=== PATIENT | male | born 1970 | race Caucasian/White ===

== ENCOUNTER 2016-12-26 11:00 | Emergency (ER) | payer MEDICARE ==
[2016-12-26 12:16] LABS: Hematocrit 46.7 % (35.5-45.6); Hemoglobin 16.4 gm/dl (11.8-15.2); Mean Corpuscular HGB Conc 35 % (32-34); Mean Corpuscular Hemoglobin 30 pg (28-32); Mean Corpuscular Volume 84 fl (84-94); Platelet Count 284 K/mm3 (140-440); Red Blood Count 5.55 M/mm3 (3.65-5.03); Red Cell Distribution Width 13.9 % (13.2-15.2); White Blood Count 10.3 K/mm3 (4.5-11.0)
[2016-12-26 13:05] LABS: Anion Gap 21 mmol/L; BUN/Creatinine Ratio 16.66; Blood Urea Nitrogen 20 mg/dL (9-20); Carbon Dioxide 27 mmol/L (22-30); Chloride 98.2 mmol/L (98-107); Glucose 107 mg/dL (75-100); Potassium 3.8 mmol/L (3.6-5.0); Sodium 142 mmol/L (137-145)
[2016-12-26 15:37] LABS: Urine Drugs of Abuse Note Disclamer
[2016-12-26 16:03] LABS: Bilirubin,Urine NEG (Negative); Blood,Urine NEG (Negative); Ketones,Urine TR mg/dL (Negative); Leukocyte Esterase,Urine NEG (Negative); Mucus,Urine 1+ /HPF; Nitrite,Urine NEG (Negative)
[2016-12-26 20:27] VITALS: BP 126/86
--- NOTE | 2016-12-26 21:07 | Emergency Department Report ---
ED Medical Clearance HPI - General Chief complaint: Medical Clearance Stated complaint: MEDICAL CLEARENCE Time Seen by Provider: 12/26/16 20:57 Source: patient, RN notes reviewed Mode of arrival: Ambulatory Limitations: No Limitations - History of Present Illness Initial comments: This is a 46-year-old male. He is previously unknown to me. He presents to the ER for medical clearance after a relapse on alcohol and crack cocaine the previous evening. The patient is not homicidal or suicidal. He is not experiencing hallucinations. He does not have access to guns or firearms. He is currently at [facility] for [facility]. He denies headache, neck pain, chest pain, abdominal pain or shortness of breath. He has no medical complaints at this time. MD Complaint: medical clearance request Reason for Medical Clearance: intoxication Place: other ([facility]) Traumatic Symptoms: denies traumatic injury Associated Symptoms: denies: chest pain, shortness of breath, palpitations, diaphoresis, denies other symptoms, confusion, cough, fever/chills, headaches, anorexia, malaise, nausea/vomiting, rash, seizure, syncope, weakness Treatments Prior to Arrival: none Allergies/Adverse reactions: Allergies Allergy/AdvReac Type Severity Reaction Status Date / Time No Known Allergies Allergy Verified 12/26/16 20:16 ED Review of Systems ROS: Stated complaint: MEDICAL CLEARENCE Other details as noted in HPI Comment: All other systems reviewed and negative ED Past Medical Hx - Past Medical History Previous Medical History?: Yes Hx Hypertension: Yes Hx Psychiatric Treatment: Yes (depression, anxiety) Hx HIV: Yes (can't recall his antiviral meds) Additional medical history: hyperlipidemia - Surgical History Past Surgical History?: No - Social History Smoking Status: Never Smoker Substance Use Type: Alcohol, Cocaine ED Physical Exam - General Limitations: No Limitations General appearance: alert, in no apparent distress - Head Head exam: Present: atraumatic, normocephalic - Eye Eye exam: Present: normal appearance, EOMI, other (visual acuity intact to finger counting, color perception, reading at a close distance). Absent: nystagmus - ENT ENT exam: Present: normal exam, normal orophraynx, mucous membranes moist, normal external ear exam - Neck Neck exam: Present: normal inspection, full ROM. Absent: tenderness, meningismus - Respiratory Respiratory exam: Present: normal lung sounds bilaterally. Absent: respiratory distress, wheezes, rales, rhonchi, stridor, chest wall tenderness, accessory muscle use, decreased breath sounds, prolonged expiratory - Cardiovascular Cardiovascular Exam: Present: regular rate, normal rhythm, normal heart sounds. Absent: bradycardia, tachycardia, irregular rhythm, systolic murmur, diastolic murmur, rubs, gallop - GI/Abdominal GI/Abdominal exam: Present: soft, normal bowel sounds. Absent: distended, tenderness, guarding, rebound, rigid, pulsatile mass - Rectal Rectal exam: Present: deferred - Extremities Exam Extremities exam: Present: normal inspection, full ROM, normal capillary refill. Absent: tenderness, pedal edema, joint swelling, calf tenderness - Back Exam Back exam: Present: normal inspection, full ROM. Absent: tenderness, CVA tenderness (R), CVA tenderness (L), muscle spasm, paraspinal tenderness, vertebral tenderness - Neurological Exam Neurological exam: Present: alert, oriented X3, normal gait, other (Extraocular movements intact. Tongue midline. No facial droop. Facial sensation intact to light touch in the V1, V2, V3 distribution bilaterally. 5 and 5 strength in 4 extremities.. Sensation is intact to light touch in 4 extremities.). Absent : motor sensory deficit - Psychiatric Psychiatric exam: Present: normal affect, normal mood. Absent: homicidal ideation, suicidal ideation - Skin Skin exam: Present: warm, dry, intact, normal color. Absent: rash ED Course Vital Signs 12/26/16 12/26/16 11:44 20:26 Temperature 98.1 F Pulse Rate 78 74 Respiratory 18 16 Rate Blood Pressure 108/71 Blood Pressure 126/86 [Left] O2 Sat by Pulse 99 97 Oximetry - Reevaluation(s) Reevaluation #1: 12/26/16 21:06 Differential diagnosis: Medical clearance for detox, medical clearance for psychiatric placement, general medical evaluation Assessment and plan: 46-year-old male who is clinically sober, not homicidal, not suicidal, here for medical clearance after relapse. He has a GCS of 15, with an NIH score of 0, walks with a steady gait. He is not clinically intoxicated at this time. He does not require 1013 at this time. He is instructed to discontinue consumption of intoxicating substances. At this point in time, there is no immediate medical contraindication to return to outpatient/inpatient psychiatric care. ED Medical Decision Making - Lab Data Result diagrams: 12/26/16 11:58 12/26/16 11:58 Vital Signs 12/26/16 12/26/16 11:44 20:26 Temperature 98.1 F Pulse Rate 78 74 Respiratory 18 16 Rate Blood Pressure 108/71 Blood Pressure 126/86 [Left] O2 Sat by Pulse 99 97 Oximetry Lab Results 12/26/16 12/26/16 12/26/16 Range/Units 11:58 11:58 11:58 WBC 10.3 (4.5-11.0) K/mm3 RBC 5.55 H (3.65-5.03) M/mm3 Hgb 16.4 H (11.8-15.2) gm/dl Hct 46.7 H (35.5-45.6) % MCV 84 (84-94) fl MCH 30 (28-32) pg MCHC 35 H (32-34) % RDW 13.9 (13.2-15.2) % Plt Count 284 (140-440) K/mm3 Lymph % (Auto) 31.3 (13.4-35.0) % [place] % (Auto) 9.2 H (0.0-7.3) % Eos % (Auto) 2.0 (0.0-4.3) % Baso % (Auto) 1.0 (0.0-1.8) % Lymph # 3.2 (1.2-5.4) K/mm3 [place]irt # 0.9 H (0.0-0.8) K/mm3 Eos # 0.2 (0.0-0.4) K/mm3 Baso # 0.1 (0.0-0.1) K/mm3 Seg Neutrophils % 56.5 (40.0-70.0) % Seg Neutrophils # 5.8 (1.8-7.7) K/mm3 Sodium 142 (137-145) mmol/L Potassium 3.8 (3.6-5.0) mmol/L Chloride 98.2 (98-107) mmol/L Carbon Dioxide 27 (22-30) mmol/L Anion Gap 21 mmol/L BUN 20 (9-20) mg/dL Creatinine 1.2 (0.8-1.5) mg/dL Estimated GFR > 60 ml/min BUN/Creatinine Ratio 16.66 % Glucose 107 H (75-100) mg/dL Calcium 10.0 (8.4-10.2) mg/dL Urine Color (Yellow) Urine Turbidity (Clear) Urine pH (5.0-7.0) Ur Specific [place] (1.003-1.030) Urine Protein (Negative) mg/dL Urine Glucose (UA) (Negative) mg/dL Urine Ketones (Negative) mg/dL Urine Blood (Negative) Urine Nitrite (Negative) Urine Bilirubin (Negative) Urine Urobilinogen (<2.0) mg/dL Ur Leukocyte Esterase (Negative) Urine WBC (Auto) (0.0-6.0) /HPF Urine RBC (Auto) (0.0-6.0) /HPF U Epithel Cells (Auto) (0-13.0) /HPF Urine Mucus /HPF Urine Opiates Screen Urine Methadone Screen Ur Barbiturates Screen Ur Phencyclidine Scrn Ur Amphetamines Screen U Benzodiazepines Scrn Urine Cocaine Screen U Marijuana (THC) Screen Drugs of Abuse Note Plasma/Serum Alcohol < 0.01 (0-0.07) gm% 12/26/16 12/26/16 Range/Units 15:15 15:15 WBC (4.5-11.0) K/mm3 RBC (3.65-5.03) M/mm3 Hgb (11.8-15.2) gm/dl Hct (35.5-45.6) % MCV (84-94) fl MCH (28-32) pg MCHC (32-34) % RDW (13.2-15.2) % Plt Count (140-440) K/mm3 Lymph % (Auto) (13.4-35.0) % Wirt % (Auto) (0.0-7.3) % Eos % (Auto) (0.0-4.3) % Baso % (Auto) (0.0-1.8) % Lymph # (1.2-5.4) K/mm3 Wirt # (0.0-0.8) K/mm3 Eos # (0.0-0.4) K/mm3 Baso # (0.0-0.1) K/mm3 Seg Neutrophils % (40.0-70.0) % Seg Neutrophils # (1.8-7.7) K/mm3 Sodium (137-145) mmol/L Potassium (3.6-5.0) mmol/L Chloride (98-107) mmol/L Carbon Dioxide (22-30) mmol/L Anion Gap mmol/L BUN (9-20) mg/dL Creatinine (0.8-1.5) mg/dL Estimated GFR ml/min BUN/Creatinine Ratio % Glucose (75-100) mg/dL Calcium (8.4-10.2) mg/dL Urine Color Yellow (Yellow) Urine Turbidity Clear (Clear) Urine pH 5.0 (5.0-7.0) Ur Specific [place] 1.032 H (1.003-1.030) Urine Protein 30 mg/dl (Negative) mg/dL Urine Glucose (UA) Neg (Negative) mg/dL Urine Ketones Tr (Negative) mg/dL Urine Blood Neg (Negative) Urine Nitrite Neg (Negative) Urine Bilirubin Neg (Negative) Urine Urobilinogen 2.0 (<2.0) mg/dL Ur Leukocyte Esterase Neg (Negative) Urine WBC (Auto) 1.0 (0.0-6.0) /HPF Urine RBC (Auto) 3.0 (0.0-6.0) /HPF U Epithel Cells (Auto) < 1.0 (0-13.0) /HPF Urine Mucus 1+ /HPF Urine Opiates Screen Presumptive negative Urine Methadone Screen Presumptive negative Ur Barbiturates Screen Presumptive positive Ur Phencyclidine Scrn Presumptive negative Ur Amphetamines Screen Presumptive negative U Benzodiazepines Scrn Presumptive negative Urine Cocaine Screen Presumptive positive U Marijuana (THC) Screen Presumptive negative Drugs of Abuse Note Disclamer Plasma/Serum Alcohol (0-0.07) gm% ED Disposition Clinical Impression: General medical exam Disposition: DISCHARGED TO HOME OR SELFCARE Is pt being admited?: No Does the pt Need Aspirin: No Condition: Stable Instructions: Polysubstance Abuse (ED) Additional Instructions: Discontinue consumption of crack, cocaine, illegal drugs. They are bad for your health. Follow up with a primary care doctor within the next 2 weeks. At this point in time, there is no immediate medical contraindication to returning to [place] for your psychiatric therapy. Please return to the ER right away with new, worsening or different symptoms. Referrals: MAVERICK ANNE MD [Staff Physician] - 3-5 Days [facility] [Provider Group] - 3-5 Days
== END 2016-12-26 21:47 | disposition home or self-care (01) ==
LOC: ED 11:00
DX: F12.10 Cannabis abuse, uncomplicated (principal); F10.10 Alcohol abuse, uncomplicated; I10 Essential (primary) hypertension; F32.9 Major depressive disorder, single episode, unspecified; F41.9 Anxiety disorder, unspecified; E78.5 Hyperlipidemia, unspecified
CPT/HCPCS: 36415; 80048; 80307; 81001; 85025; 99283; G0480; 80320

== ENCOUNTER 2017-02-02 09:40 | Emergency (ER) | payer MEDICARE ==
[2017-02-02 11:21] VITALS: BP 131/97
[2017-02-02 11:36] LABS: Basophils % (Auto) 0.5 % (0.0-1.8); Hematocrit 40.4 % (35.5-45.6); Hemoglobin 14.1 gm/dl (11.8-15.2); Mean Corpuscular HGB Conc 35 % (32-34); Mean Corpuscular Hemoglobin 30 pg (28-32); Mean Corpuscular Volume 84 fl (84-94); Platelet Count 262 K/mm3 (140-440); Red Blood Count 4.79 M/mm3 (3.65-5.03); Red Cell Distribution Width 13.6 % (13.2-15.2); White Blood Count 8.2 K/mm3 (4.5-11.0)
[2017-02-02 11:50] LABS: Anion Gap 16 mmol/L; BUN/Creatinine Ratio 14.44; Blood Urea Nitrogen 13 mg/dL (9-20); Calcium 8.9 mg/dL (8.4-10.2); Carbon Dioxide 25 mmol/L (22-30); Chloride 101.6 mmol/L (98-107); Glucose 89 mg/dL (75-100); Potassium 3.9 mmol/L (3.6-5.0); Sodium 139 mmol/L (137-145)
[2017-02-02 12:06] LABS: Urine Drugs of Abuse Note Disclamer
[2017-02-02 12:27] LABS: Bilirubin,Urine NEG (Negative); Blood,Urine NEG (Negative); Ketones,Urine NEG (Negative); Leukocyte Esterase,Urine TR (Negative); Mucus,Urine 3+ /HPF; Nitrite,Urine NEG (Negative)
--- NOTE | 2017-02-07 10:58 | ED Elopement Review ---
ED Pt Elopement review - Results review Lab results: Laboratory Tests 02/02/17 02/02/17 02/02/17 11:24 11:24 11:24 WBC 8.2 RBC 4.79 Hgb 14.1 Hct 40.4 MCV 84 MCH 30 MCHC 35 H RDW 13.6 Plt Count 262 Lymph % (Auto) 37.2 H [place] % (Auto) 8.3 H Eos % (Auto) 3.0 Baso % (Auto) 0.5 Lymph # 3.0 [place] # 0.7 Eos # 0.2 Baso # 0.0 Seg Neutrophils % 51.0 Seg Neutrophils # 4.2 Sodium 139 Potassium 3.9 Chloride 101.6 Carbon Dioxide 25 Anion Gap 16 BUN 13 Creatinine 0.9 Estimated GFR > 60 BUN/Creatinine Ratio 14.44 Glucose 89 Calcium 8.9 Urine Color Urine Turbidity Urine pH Ur Specific [place] Urine Protein Urine Glucose (UA) Urine Ketones Urine Blood Urine Nitrite Urine Bilirubin Urine Urobilinogen Ur Leukocyte Esterase Urine WBC (Auto) Urine RBC (Auto) Urine Mucus Urine Opiates Screen Urine Methadone Screen Ur Barbiturates Screen Ur Phencyclidine Scrn Ur Amphetamines Screen U Benzodiazepines Scrn Urine Cocaine Screen U Marijuana (THC) Screen Drugs of Abuse Note Plasma/Serum Alcohol < 0.01 02/02/17 02/02/17 11:57 11:57 WBC RBC Hgb Hct MCV MCH MCHC RDW Plt Count Lymph % (Auto) [place] % (Auto) Eos % (Auto) Baso % (Auto) Lymph # [place] # Eos # Baso # Seg Neutrophils % Seg Neutrophils # Sodium Potassium Chloride Carbon Dioxide Anion Gap BUN Creatinine Estimated GFR BUN/Creatinine Ratio Glucose Calcium Urine Color Yellow Urine Turbidity Clear Urine pH 5.0 Ur Specific [place] 1.035 H Urine Protein 30 mg/dl Urine Glucose (UA) Neg Urine Ketones Neg Urine Blood Neg Urine Nitrite Neg Urine Bilirubin Neg Urine Urobilinogen 4.0 Ur Leukocyte Esterase Tr Urine WBC (Auto) 10.0 H Urine RBC (Auto) 3.0 Urine Mucus 3+ Urine Opiates Screen Presumptive negative Urine Methadone Screen Presumptive negative Ur Barbiturates Screen Presumptive positive Ur Phencyclidine Scrn Presumptive negative Ur Amphetamines Screen Presumptive negative U Benzodiazepines Scrn Presumptive negative Urine Cocaine Screen Presumptive positive U Marijuana (THC) Screen Presumptive negative Drugs of Abuse Note Disclamer Plasma/Serum Alcohol - Call Back decision Pt Call Back Decision: No action required
== END 2017-02-02 23:30 | disposition left against medical advice (07) ==
LOC: ED 09:40
DX: F32.9 Major depressive disorder, single episode, unspecified (principal); Z53.21 Procedure and treatment not carried out due to patient leaving prior to being seen by health care provider
CPT/HCPCS: 36415; 80048; 80307; 81001; 85025; G0480; 80320

== ENCOUNTER 2017-02-13 09:45 | Emergency (ER) | payer MEDICARE ==
[2017-02-13 09:56] VITALS: BP 122/86
[2017-02-13 10:24] LABS: Basophils % (Auto) 0.9 % (0.0-1.8); Eosinophils % (Auto) 3.8 % (0.0-4.3); Hematocrit 41.4 % (35.5-45.6); Hemoglobin 13.9 gm/dl (11.8-15.2); Mean Corpuscular HGB Conc 34 % (32-34); Mean Corpuscular Hemoglobin 29 pg (28-32); Mean Corpuscular Volume 85 fl (84-94); Platelet Count 290 K/mm3 (140-440); Red Blood Count 4.88 M/mm3 (3.65-5.03); Red Cell Distribution Width 13.6 % (13.2-15.2); White Blood Count 6.2 K/mm3 (4.5-11.0)
[2017-02-13 10:25] LABS: Urine Drugs of Abuse Note Disclamer
[2017-02-13 10:41] LABS: Anion Gap 18 mmol/L; Blood Urea Nitrogen 13 mg/dL (9-20); Carbon Dioxide 26 mmol/L (22-30); Glucose 94 mg/dL (75-100); Potassium 4.2 mmol/L (3.6-5.0); Sodium 141 mmol/L (137-145)
[2017-02-13 10:52] LABS: Bilirubin,Urine NEG (Negative); Blood,Urine SM (Negative); Ketones,Urine NEG (Negative); Leukocyte Esterase,Urine NEG (Negative); Mucus,Urine 1+ /HPF; Nitrite,Urine NEG (Negative); Protein,Urine <15 mg/dL mg/dL (Negative); Urobilinogen,Urine < 2.0 mg/dL (<2.0); WBC,Urine < 1.0 /HPF (0.0-6.0)
--- NOTE | 2017-02-13 11:50 | Emergency Department Report ---
HPI - General Chief Complaint: Medical Clearance Time Seen by Provider: 02/13/17 10:30 - HPI HPI: The patient is a 46-year-old male who presents for evaluation of mental health. The patient reports constant and severe sadness for the past day, exacerbated with illicit drug use. He states that he would like to enter rehabilitation facility for substance abuse. The patient denies fever, headache, unexplained weight loss or weight gain, heat or cold intolerance, skin, hair, or nail changes, neuro deficits, suicidal ideations, homicidal ideations, or auditory or visual hallucinations. ED Past Medical Hx - Past Medical History Previous Medical History?: Yes Hx Hypertension: Yes Hx GERD: Yes Hx Psychiatric Treatment: Yes (depression, anxiety) Hx HIV: Yes (can't recall his antiviral meds) Additional medical history: hyperlipidemia - Surgical History Past Surgical History?: No - Social History Smoking Status: Never Smoker Substance Use Type: Alcohol, Cocaine ED Review of Systems ROS: Stated complaint: [facility] ASSESSMENT CLEARANCE Other details as noted in HPI Constitutional: denies: fever ENT: denies: throat or neck pain Respiratory: denies: cough, shortness of breath Cardiovascular: denies: chest pain Endocrine: denies unexplained weight loss or gain Gastrointestinal: denies: abdominal pain, nausea Genitourinary: denies: dysuria Musculoskeletal: denies: leg swelling Skin: denies: rash Neurological: denies: headache Hematological/Lymphatic: denies: easy bleeding or easy bruising Psych: reports sadness or hopelessness Physical Exam - Physical Exam Vital Signs: Vital Signs 02/13/17 02/13/17 09:52 10:44 Temperature 98.1 F Pulse Rate 72 Respiratory 16 16 Rate Blood Pressure 122/86 O2 Sat by Pulse 100 100 Oximetry Physical Exam: General: well-nourished, well-developed, no acute distress Head: Normocephalic, atraumatic Eyes: normal sclera ENT: Mucous membranes are pink and moist Neck: trachea midline, neck supple, No neck stiffness, no cervical adenopathy Respiratory: Breath sounds equal bilaterally, no wheezing, rales, or rhonchi Cardio: S1 and S2 present, no murmurs, rubs, gallops, capillary refill is brisk Abdomen: Normoactive bowel sounds, soft abdomen, no rigidity, no guarding or rebound tenderness Musc: No pitting edema Skin: No rash Neuro: no facial drooping, normal speech Psych: Flat affect, normal insight, depressed mood, no delusions, no hallucinations ED Course Vital Signs 02/13/17 02/13/17 09:52 10:44 Temperature 98.1 F Pulse Rate 72 Respiratory 16 16 Rate Blood Pressure 122/86 O2 Sat by Pulse 100 100 Oximetry ED Medical Decision Making - Lab Data Result diagrams: 02/13/17 10:04 02/13/17 10:04 - Medical Decision Making The patient was seen and examined by myself. The patient is placed on a desk monitor and continuous pulse ox. On initial evaluation, the patient was found to be in no distress. Labs are obtained. Lab results are grossly unremarkable. The patient is medically cleared for admission to drug rehabilitation facility. Mental health evaluated the patient agrees and the patient is negative for findings concerning of risk of harm to self or others. Critical care attestation.: If time is entered above; I have spent that time in minutes in the direct care of this critically ill patient, excluding procedure time. ED Disposition Clinical Impression: Substance abuse Depressed Qualifiers: Depression Type: major depressive disorder Major depression recurrence: single episode Active/Remission status: currently active Major depression episode severity: moderate Qualified Code(s): F32.1 - Major depressive disorder, single episode, moderate Disposition: DC-01 TO HOME OR SELFCARE Is pt being admited?: No Does the pt Need Aspirin: No Condition: Stable Instructions: Depression (ED), Suicide Prevention for Adults (ED), Medical Clearance for Substance Abuse Treatment (ED) Referrals: THOMAS WADSWORTH JR, MD [Primary Care Provider] - 3-5 Days [facility] [Outside] - 3-5 Days Time of Disposition: 11:52
== END 2017-02-13 12:26 | disposition home or self-care (01) ==
LOC: ED 09:45
DX: F19.10 Other psychoactive substance abuse, uncomplicated (principal); F32.1 Major depressive disorder, single episode, moderate; I10 Essential (primary) hypertension; K21.9 Gastro-esophageal reflux disease without esophagitis; F41.9 Anxiety disorder, unspecified; F14.90 Cocaine use, unspecified, uncomplicated
CPT/HCPCS: 36415; 80048; 80307; 81001; 85025; 99284; G0480; 80320

== ENCOUNTER 2017-03-22 13:38 | Emergency (ER) | payer MEDICARE ==
[2017-03-22 14:08] LABS: Basophils % (Auto) 1.2 % (0.0-1.8); Eosinophils % (Auto) 3.5 % (0.0-4.3); Hematocrit 42.4 % (35.5-45.6); Hemoglobin 14.8 gm/dl (11.8-15.2); Mean Corpuscular HGB Conc 35 % (32-34); Mean Corpuscular Hemoglobin 30 pg (28-32); Mean Corpuscular Volume 86 fl (84-94); Platelet Count 314 K/mm3 (140-440); Red Blood Count 4.95 M/mm3 (3.65-5.03); Red Cell Distribution Width 14.6 % (13.2-15.2); White Blood Count 7.3 K/mm3 (4.5-11.0)
[2017-03-22 14:25] LABS: Anion Gap 21 mmol/L; Blood Urea Nitrogen 9 mg/dL (9-20); Calcium 9.2 mg/dL (8.4-10.2); Carbon Dioxide 24 mmol/L (22-30); Chloride 95.7 mmol/L (98-107); Glucose 193 mg/dL (75-100); Potassium 3.8 mmol/L (3.6-5.0); Sodium 137 mmol/L (137-145)
[2017-03-22 14:36] LABS: Urine Drugs of Abuse Note Disclamer
[2017-03-22 14:40] LABS: Bilirubin,Urine NEG (Negative); Blood,Urine SM (Negative); Ketones,Urine TR mg/dL (Negative); Leukocyte Esterase,Urine NEG (Negative); Mucus,Urine 3+ /HPF; Nitrite,Urine NEG (Negative)
--- NOTE | 2017-03-22 20:55 | Emergency Department Report ---
HPI - General Chief Complaint: Psych Time Seen by Provider: 03/22/17 20:12 - HPI HPI: This is a 46-year-old Afro-Cuban male presents to the emergency department with the complaint of recent alcohol and crack cocaine abuse. He last used both of these substances yesterday morning. He is here interested in getting to a inpatient program for his addictions and/or detox, although he does not appear acutely intoxicated. He has a past medical history of GERD, HIV and hypertension for which she takes medications. His primary care physician is Dr. Norberto Lazo. He denies any physical complaints at this point. He denies any suicidal or homicidal ideations. He denies any auditory or visual hallucinations. ED Past Medical Hx - Past Medical History Hx Hypertension: Yes Hx GERD: Yes Hx Psychiatric Treatment: Yes (depression, anxiety) Hx HIV: Yes Additional medical history: hyperlipidemia - Surgical History Past Surgical History?: No - Social History Smoking Status: Never Smoker Substance Use Type: Alcohol, Cocaine ED Review of Systems ROS: Stated complaint: MH Other details as noted in HPI Comment: All other systems reviewed and negative Constitutional: denies: chills, fever Eyes: denies: eye pain, eye discharge, vision change ENT: denies: ear pain, throat pain Respiratory: denies: cough, shortness of breath, wheezing Cardiovascular: denies: chest pain, palpitations Gastrointestinal: denies: abdominal pain, nausea, diarrhea Genitourinary: denies: urgency, dysuria Musculoskeletal: denies: back pain, joint swelling, arthralgia Skin: denies: rash, lesions Neurological: denies: headache, weakness, paresthesias Physical Exam - Physical Exam Vital Signs: Vital Signs 03/22/17 13:44 Temperature 98.2 F Pulse Rate 64 Respiratory 18 Rate Blood Pressure 144/92 O2 Sat by Pulse 100 Oximetry Physical Exam: GENERAL: The patient is well-developed well-nourished. HEENT: Normocephalic. Atraumatic. Extraocular motions are intact. Patient has moist mucous membranes. Pupils equal reactive to light bilaterally. NECK: Supple. Trachea is midline. CHEST/LUNGS: Clear to auscultation. There is no respiratory distress noted. HEART/CARDIOVASCULAR: Regular. There is no tachycardia. There is no gallop rub or murmur. ABDOMEN: Abdomen is soft, nontender. Patient has normal bowel sounds. There is no abdominal distention. SKIN: Skin is warm and dry. NEURO: The patient is awake, alert, and oriented. The patient is cooperative. The patient has no focal neurologic deficits. The patient has normal speech. Cranial nerves II through XII grossly intact. MUSCULOSKELETAL: There is no tenderness or deformity. There is no limitation range of motion. There is no evidence of acute injury. ED Course Vital Signs 03/22/17 13:44 Temperature 98.2 F Pulse Rate 64 Respiratory 18 Rate Blood Pressure 144/92 O2 Sat by Pulse 100 Oximetry ED Medical Decision Making - Lab Data Result diagrams: 03/22/17 13:57 03/22/17 13:57 - Medical Decision Making 46-year-old male presents hoping to get some help with his addiction for crack cocaine and alcohol. He does not appear intoxicated. Blood alcohol level is negative. Urine drug screen positive only for cocaine. The rest the labs unremarkable. Vital signs stable. No suicidal or homicidal ideations. No hallucinations. He does not meet criteria to be a 1013. However there are some inpatient options for him in which she will be a voluntary admission but most likely will be accepted sometime tomorrow. Critical Care Time: No Critical care attestation.: If time is entered above; I have spent that time in minutes in the direct care of this critically ill patient, excluding procedure time. ED Disposition Clinical Impression: History of cocaine abuse, History of alcohol abuse Disposition: [id number]/TX-[id number] PSY HOSP/PSY UNIT Is pt being admited?: No Condition: Stable Referrals: PRIMARY CAREMD [Primary Care Provider] - 3-5 Days Time of Disposition: 23:32
--- NOTE | 2017-03-23 13:49 | Consultation ---
History of Present Illness - Reason for Consult Consult date: 03/23/17 Reason for consult: Mental Health Evaluation Requesting physician: BUBBA GARCIA - Chief Complaint Chief complaint: "I just need help" - History of Present Psychiatric Illness This is a 46-year-old Afro-[place]er male presents to the emergency department with the complaint of recent alcohol and crack cocaine abuse. Today patient is calm and cooperative during assessment. Patient stated that he want help for his cocaine and alcohol use. Patient stated that he self medicate with cocaine because of depression. He stated that he started drinking alcohol 20+ yrs ago. He stated multiple rehabs services, but relapse within months. Per the patient, he drink (etoh) whatever he can get his hands on. He stated having family issues lately and this has exacerbated his substance use. His last drink and cocaine use was 2 days ago. He stated not being compliant with any of his medications. He denies SI/HI's and AVH's. He stated sleeping "okay." He denies a poor appetite. Medications and Allergies Allergies Allergy/AdvReac Type Severity Reaction Status Date / Time No Known Allergies Allergy Verified 03/22/17 13:43 Home Medications Medication Instructions Recorded Confirmed Last Taken Type Elviteg/Ashley/Emtric/Tenofo [place] 03/23/17 Unknown History [Genvoya ([place])] Past psychiatric history - Past Medical History Past Medical History: HIV/AIDS, hypertension Past Surgical History: No surgical history - past Psychiatric treatment and history Psych: Depression psychiatric treatment history: Multiple rehab services for recreational drugs and alcohol (etoh). Father was an alcoholic. - Social History Social history: lives with family Mental Status Exam - Vital signs Last Vital Signs Temp 98.0 F 03/23/17 08:53 Pulse 63 03/23/17 08:53 Resp 17 03/23/17 08:53 BP 132/77 03/23/17 08:53 Pulse Ox 96 03/23/17 08:53 - Exam Narrative exam: ROS: (+) depression MSE: Appearance: calm, cooperative Behavior: regular eye contact Speech: regular rate and tone Mood: "just tired" Affect: congruent to mood Thought Process: linearl Thought Content: denies SI/HI's and AVH's Motor Activity: lying in bed Cognition: A/Ox 3 Insight: fair Judgment: fair Results Result Diagrams: 03/22/17 13:57 03/22/17 13:57 Abnormal lab results 03/22/17 03/22/17 03/22/17 Range/Units 13:57 13:57 14:02 MCHC 35 H (32-34) % [place] % (Auto) 9.2 H (0.0-7.3) % Chloride 95.7 L (98-107) mmol/L Glucose 193 H (75-100) mg/dL Ur Specific [place] 1.031 H (1.003-1.030) All other labs normal. Assessment and Plan Assessment and plan: Impression: Historical Dx: MDD. Alcohol Use DO. Substance Use DO (cocaine). Today patient is calm and cooperative during assessment. No acute withdrawals noted. DDx: R/O Bipolar, R/O Substance Induced Mood DO Recommendation/Plan: Patient has placement at [facility] today for Substance/Alcohol Use pending transport time. Discussed generalized coping skills with patients.
[2017-03-23 17:36] VITALS: BP 124/76
== END 2017-03-23 22:13 ==
LOC: ED 13:38 → EEVIPCON 13:38 → ED 03-23 22:13
DX: F14.10 Cocaine abuse, uncomplicated (principal); F10.10 Alcohol abuse, uncomplicated; I10 Essential (primary) hypertension; K21.9 Gastro-esophageal reflux disease without esophagitis
CPT/HCPCS: 36415; 80048; 80307; 81001; 85025; 99285; G0480; 80320

== ENCOUNTER 2020-11-07 10:03 | Emergency (ER) | payer MEDICARE ==
[2020-11-07 10:12] VITALS: BP 137/86
[2020-11-07 10:55] LABS: Bilirubin,Urine NEG (Negative); Blood,Urine SM (Negative); Color,Urine Yellow (Yellow); Protein,Urine <15 mg/dL mg/dL (Negative); WBC,Urine < 1.0 /HPF (0.0-6.0)
[2020-11-07 11:03] LABS: Amphetamine Screen,Urine Negative; Benzodiazepines Screen,Urine Negative; Cannabinoid Screen,Urine Negative; Methadone Screen,Urine Negative; Opiate Screen,Urine Negative
--- NOTE | 2020-11-07 11:04 | Emergency Department Report ---
ED General Adult HPI - General Chief complaint: Medical Clearance Stated complaint: MEDICAL CLEARENCE FOR [facility] Time Seen by Provider: 11/07/20 10:39 Source: patient Mode of arrival: Ambulatory Limitations: No Limitations - History of Present Illness Initial comments: This is a 50-year-old man with a history of depression, alcohol abuse and crack cocaine use. He states he has been to [facility] today and previously admitted to there. He states he was sent here for medical clearance. He has no specific complaint. However, on review of systems he does state that his urine has been quite dark. He states "that might be due to the drugs I use last night". He denies suicidal ideation. Otherwise he is without complaints. -: Gradual, week(s), month(s) Associated Symptoms: denies other symptoms - Related Data Home Medications Medication Instructions Recorded Confirmed Last Taken Elviteg/Ashley/Emtric/Tenofo Ala 03/23/17 Unknown [Genvoya (Nf)] Allergies Allergy/AdvReac Type Severity Reaction Status Date / Time No Known Allergies Allergy Verified 11/07/20 10:06 ED Review of Systems ROS: Stated complaint: MEDICAL CLEARENCE FOR [facility] Other details as noted in HPI Constitutional: denies: chills, fever Eyes: denies: eye pain, vision change ENT: denies: ear pain, throat pain Respiratory: denies: cough, shortness of breath, wheezing Cardiovascular: denies: chest pain, palpitations Endocrine: no symptoms reported Gastrointestinal: denies: abdominal pain, nausea, diarrhea Genitourinary: as per HPI, other. denies: urgency, dysuria Musculoskeletal: denies: back pain, joint swelling, arthralgia Skin: denies: rash, lesions Neurological: denies: headache, weakness, paresthesias Psychiatric: depression. denies: anxiety, auditory hallucinations, visual hallucinations, homicidal thoughts, suicidal thoughts Hematological/Lymphatic: denies: easy bleeding, easy bruising ED Past Medical Hx - Past Medical History Hx Hypertension: Yes Hx GERD: Yes Hx Psychiatric Treatment: Yes (depression, anxiety) Hx HIV: Yes Additional medical history: hyperlipidemia - Surgical History Past Surgical History?: No - Social History Smoking Status: Never Smoker Substance Use Type: Alcohol, Cocaine - Medications Home Medications: Home Medications Medication Instructions Recorded Confirmed Last Taken Type Elviteg/Ashley/Emtric/Tenofo Ala 03/23/17 Unknown History [Genvoya (Nf)] ED Physical Exam - General Limitations: No Limitations General appearance: alert, in no apparent distress - Head Head exam: Present: atraumatic, normocephalic - Eye Eye exam: Present: normal appearance. Absent: scleral icterus - ENT ENT exam: Present: mucous membranes moist - Neck Neck exam: Present: normal inspection - Respiratory Respiratory exam: Present: normal lung sounds bilaterally. Absent: respiratory distress - Cardiovascular Cardiovascular Exam: Present: regular rate, normal rhythm. Absent: systolic murmur, diastolic murmur, rubs, gallop - GI/Abdominal GI/Abdominal exam: Present: soft, normal bowel sounds. Absent: distended, tenderness, guarding, rebound, rigid - Rectal Rectal exam: Present: deferred - Extremities Exam Extremities exam: Present: normal inspection - Back Exam Back exam: Present: normal inspection - Neurological Exam Neurological exam: Present: alert, oriented X3, CN II-XII intact. Absent: motor sensory deficit - Psychiatric Psychiatric exam: Present: normal affect, normal mood - Skin Skin exam: Present: warm, dry, intact, normal color. Absent: rash ED Course Vital Signs 11/07/20 10:10 Temperature 98.1 F Pulse Rate 93 H Respiratory 16 Rate Blood Pressure 137/86 O2 Sat by Pulse 96 Oximetry - Reevaluation(s) Reevaluation #1: Patient remains calm and restful. He is directed back to [place]. He does not meet 1013 criteria. He will be allowed to go there via private vehicle. He is medically clear for further psychiatric treatment or hospitalization. 11/07/20 12:29 ED Medical Decision Making - Lab Data Result diagrams: 11/07/20 11:07 11/07/20 11:07 Critical care attestation.: If time is entered above; I have spent that time in minutes in the direct care of this critically ill patient, excluding procedure time. ED Disposition Clinical Impression: Cocaine abuse, Medical clearance for psychiatric admission Depression Qualifiers: Depression Type: unspecified Qualified Code(s): F32.9 - Major depressive disorder, single episode, unspecified Disposition: DC-01 TO HOME OR SELFCARE Is pt being admited?: No Does the pt Need Aspirin: No Condition: Stable Instructions: Substance Use Disorder, Major Depressive Disorder, Adult, Substance Use Disorder and Mental Illness Additional Instructions: I would recommend increase fluids. You may proceed to [facility]. You are medically clear for further treatment there. Referrals: PRIMARY CARE, [Primary Care Provider] - 3-5 Days Time of Disposition: 12:31
[2020-11-07 11:24] LABS: Cocaine Screen,Urine Positive
[2020-11-07 11:50] LABS: Basophils # (Auto) 0.1 K/mm3 (0.0-0.1); Basophils % (Auto) 0.6 % (0.0-1.8); Eosinophils # (Auto) 0.2 K/mm3 (0.0-0.4); Eosinophils % (Auto) 2.3 % (0.0-4.3); Hematocrit 40.8 % (35.5-45.6); Hemoglobin 14.2 gm/dl (11.8-15.2); Lymphocytes # (Auto) 2.2 K/mm3 (1.2-5.4); Lymphocytes % (Auto) 24.3 % (13.4-35.0); Mean Corpuscular HGB Conc 35 % (32-34); Mean Corpuscular Volume 85 fl (84-94); Monocytes # (Auto) 0.8 K/mm3 (0.0-0.8); Monocytes % (Auto) 9.3 % (0.0-7.3); Platelet Count 265 K/mm3 (140-440); Red Blood Count 4.83 M/mm3 (3.65-5.03); Red Cell Distribution Width 14.3 % (13.2-15.2)
[2020-11-07 12:05] LABS: BUN/Creatinine Ratio 13; Blood Urea Nitrogen 13 mg/dL (9-20); Calcium 9.1 mg/dL (8.4-10.2); Creatine Kinase MB 2.6 ng/mL (0.0-4.0); Hemolysis Index 6
== END 2020-11-07 12:30 | disposition home or self-care (01) ==
LOC: ED 10:03
DX: F14.10 Cocaine abuse, uncomplicated (principal); F32.9 Major depressive disorder, single episode, unspecified; Z04.6 Encounter for general psychiatric examination, requested by authority; I10 Essential (primary) hypertension; K21.9 Gastro-esophageal reflux disease without esophagitis; M19.90 Unspecified osteoarthritis, unspecified site; F41.9 Anxiety disorder, unspecified; Z21 Asymptomatic human immunodeficiency virus [HIV] infection status; Z79.899 Other long term (current) drug therapy
CPT/HCPCS: 36415; 80048; 80307; 80320; 81001; 82550; 82553; 85025; 99283; G0480

== ENCOUNTER 2021-03-01 12:26 | Emergency (ER) | payer MEDICARE ==
[2021-03-01 13:52] VITALS: BP 138/84
--- NOTE | 2021-03-01 15:18 | Emergency Department Report ---
ED General Adult HPI - General Chief complaint: Skin Rash Stated complaint: RASH Time Seen by Provider: 03/01/21 15:12 Source: patient Mode of arrival: Ambulatory Limitations: No Limitations - History of Present Illness Initial comments: 50-year-old male patient with history of HIV presents to the emergency department with complaints of a pruritic rash to his abdomen and pelvis starting approximately 4 weeks ago. Patient states the rash is primarily localized to the flank area and suprapubic area. He has been on multiple topical medications, including antihistamines, antifungals, and steroids. He has not been on any oral medication since the rash began. He is on antiretroviral therapy. Last CD4 count was >1000. Denies fever, neck stiffness, seizure, syncope, mental status changes, abnormal bleeding/bruising, visual disturbance, loss of taste/smell/hearing, bladder/bowel dysfunction. Denies all other complaints at this time. - Related Data Home Medications Medication Instructions Recorded Confirmed Last Taken Elviteg/Ashley/Emtric/Tenofo Ala 03/23/17 Unknown [Genvoya (Nf)] Previous Rx's Medication Instructions Recorded Last Taken Type Acyclovir [Zovirax Tab] 800 mg PO 5XD 7 Days tablet 03/01/21 Unknown Rx Hydroxyzine HCl [hydrOXYzine] 25 mg PO TID #20 tablet 03/01/21 Unknown Rx Allergies Allergy/AdvReac Type Severity Reaction Status Date / Time No Known Allergies Allergy Verified 11/07/20 10:06 ED Review of Systems ROS: Stated complaint: RASH Other details as noted in HPI Other: GENERAL: Negative for fever. CARDIOVASCULAR: Negative for chest pain. PULMONARY: Negative for shortness of breath. GASTROINTESTINAL: Negative for abdominal pain. MUSCULOSKELETAL: Negative for back pain. NEUROLOGICAL: Negative for headache. INTEGUMENTARY: Positive for rash. ED Past Medical Hx - Past Medical History Previous Medical History?: Yes Hx Hypertension: Yes Hx GERD: Yes Hx Psychiatric Treatment: Yes (depression, anxiety) Hx HIV: Yes Additional medical history: hyperlipidemia - Surgical History Past Surgical History?: No - Social History Smoking Status: Never Smoker Substance Use Type: Alcohol, Cocaine - Medications Home Medications: Home Medications Medication Instructions Recorded Confirmed Last Taken Type Elviteg/Ashley/Emtric/Tenofo Ala 03/23/17 Unknown History [Genvoya (Nf)] Acyclovir [Zovirax Tab] 800 mg PO 5XD 7 Days tablet 03/01/21 Unknown Rx Hydroxyzine HCl [hydrOXYzine] 25 mg PO TID #20 tablet 03/01/21 Unknown Rx ED Physical Exam - General Limitations: No Limitations - Other Other exam information: General: Awake, appropriately interactive, no acute distress. Neck: Supple. Full range of motion intact. Cardiovascular: Normal peripheral perfusion. Pulmonary: No respiratory distress. Patient is speaking normally without use of accessory muscles. Skin: Maculopapular rash with scattered scabbed vesicles on an erythematous base along the flanks bilaterally, involving multiple dermatomes, as well as the suprapubic area. Velásquez sign is negative. No petechiae or purpura. Neurological: No facial asymmetry. Speech is clear. Follows commands. Patient is alert and oriented. Musculoskeletal: Moves all four extremities spontaneously with normal range of motion. Psych: Cooperative. Appropriate mood and affect. ED Course Vital Signs 03/01/21 13:48 Temperature 98.1 F Pulse Rate 66 Respiratory 18 Rate Blood Pressure 138/84 O2 Sat by Pulse 97 Oximetry ED Medical Decision Making - Medical Decision Making Differential diagnosis including but not limited to: herpes zoster, tinea corporis, varicella, cellulitis, opportunistic infection Patient presents to the emergency department with complaints of a rash to the bilateral flanks and suprapubic area. Patient is immunosuppression with history of HIV, CD4 count ~1000. Topical steroids/antifungals have been ineffective. Suspect patient's rash is attributable to herpes zoster, although the rash crosses midline and involves multiple dermatomes, his underlying HIV infection is likely contributing to atypical rash distribution. Treated with Acyclovir and advised to discontinue topical therapies. Referred to [facility] for close outpatient follow-up. The patient is alert and well appearing. There are no petichiae or purpura, no mucous membrane lesions, and no bullae. The patient is without findings concerning for worrisome systemic illness requiring further santos atment, additional testing, admission, or specialist consultation at this time. Additional testing is not indicated at this time, but should be considered if symptoms worsen or recur. Discussed findings, presumptive diagnosis, need for follow-up and specific signs/symptoms that should prompt immediate return to the emergency department. Instructions were explained in detail to the patient in addition to giving written discharge information. Patient expressed understanding and was given the opportunity to ask questions, all of which were satisfactorily answered prior to discharge home. Case discussed with Dr. Fairchild, attending emergency physician, who personally evaluated the patient and agrees with plan of care. Critical care attestation.: If time is entered above; I have spent that time in minutes in the direct care of this critically ill patient, excluding procedure time. ED Disposition Clinical Impression: History of HIV infection Herpes zoster Qualifiers: Herpes zoster complications: unspecified herpes zoster complication Qualified Code(s): B02.8 - Zoster with other complications Disposition: TO HOME OR SELFCARE Is pt being admited?: No Does the pt Need Aspirin: No Condition: Stable Instructions: Shingles, Opportunistic Infections Additional Instructions: Take Hydroxyzine as directed for itching. Take Acyclovir five times daily for seven days. Discontinue all topical medications. Follow-up with [facility] this week. Call today to schedule an appointment. See referral information below. Return to the emergency department immediately for new or worsening symptoms specifically, return to the emergency department immediately for fever, worsening rash, changes in vision/hearing/taste/smell, bladder/bowel dysfunction, neck stiffness, mental status changes, or any other concerns. Prescriptions: Hydroxyzine HCl [hydrOXYzine] 25 mg PO TID #20 tablet Acyclovir [Zovirax Tab] 800 mg PO 5XD 7 Days tablet Referrals: DIANA VALDES MD [Referring] - 3-5 Days Time of Disposition: 15:19
== END 2021-03-01 15:30 | disposition home or self-care (01) ==
LOC: ED 12:26
DX: B02.9 Zoster without complications (principal); I10 Essential (primary) hypertension; K21.9 Gastro-esophageal reflux disease without esophagitis; F32.9 Major depressive disorder, single episode, unspecified; F41.9 Anxiety disorder, unspecified; F14.10 Cocaine abuse, uncomplicated; Z21 Asymptomatic human immunodeficiency virus [HIV] infection status; Z79.899 Other long term (current) drug therapy
CPT/HCPCS: 99281

== ENCOUNTER 2021-05-08 14:13 | Outpatient (CLI) | payer MEDICARE | END 2021-05-08 14:14 | disposition home or self-care (01) | LOC: LAB 14:13 | PROVIDERS: ATTEND Student in an Organized Health Care Education/Training Program | DX: F33.2 Major depressive disorder, recurrent severe without psychotic features (principal) | CPT/HCPCS: 36415; 86592 ==